=== PATIENT | female | born 1965 | race Caucasian/White ===

== ENCOUNTER 2018-02-21 13:17 | Emergency (ER) | payer OTHER ==
[~2018-02-21] VITALS: Ht 162.6 cm; Wt 78.6 kg
[~2018-02-21 13:17] MED LIST: ATORVASTATIN CA40 MG PO; BAYER BACK & B1 EACH PO; CARAFATE1 GM PO; GLIPIZIDE-METF1 EAC2 PO; LANTUS 3 M100 UNITS1 SC; LO-DOSE ASPIRIN81 M1 PO; METFORMIN HCL500 MG PO; PRINIVIL20 MG PO; PROTONIX40 MG PO; VICTOZA 2-0.6 MG/0.1 SC
[2018-02-21 15:55] VITALS: BP 156/95
== END 2018-02-21 16:07 | disposition home or self-care (01) ==
LOC: EME 13:17
DX: S93.401A Sprain of unspecified ligament of right ankle, initial encounter (principal); X50.1XXA Overexertion from prolonged static or awkward postures, initial encounter; I10 Essential (primary) hypertension; E78.5 Hyperlipidemia, unspecified; E11.9 Type 2 diabetes mellitus without complications; Z79.84 Long term (current) use of oral hypoglycemic drugs; Z79.82 Long term (current) use of aspirin
CPT/HCPCS: 73610; 99281; 99284